=== PATIENT | male | born 1990 ===

== ENCOUNTER 2016-11-14 15:30 | Emergency (ER) | payer SELFPAY ==
[2016-11-14 15:46] VITALS: BP 106/69; PULSE 58; RESP 18; TEMP 98.2; O2SAT 100
--- NOTE | 2016-11-14 15:55 | C.PDOC ---
History Of Present Illness 26 year old male presents to the ED seeking detox from cocaine. Patient notes last use was today and he uses two bags daily. He denies physical complaints, suicidal, or homicidal ideations. No h/o seizures. Time Seen by Provider: 11/14/16 15:50 Chief Complaint (Nursing): Substance Abuse History Per: Patient History/Exam Limitations: no limitations Suicide/Self Injury Attempted (Context): None Modifying Factor(s): Cocaine Severity: None Pain Scale Rating Of: 0 Associated Symptoms: denies: Suicidal Thoughts, Suicidal Plan Involuntary Hold By: None Recent travel outside of the [place]: No Past Medical History Reviewed: Historical Data, Nursing Documentation, Vital Signs Vital Signs: Last Vital Signs Temp 98.2 F 11/14/16 15:43 Pulse 58 L 11/14/16 15:43 Resp 18 11/14/16 15:43 BP 106/69 11/14/16 15:43 Pulse Ox 100 11/14/16 16:10 Family History: States: Unknown Family Hx - Social History Hx Alcohol Use: No Hx Substance Use: Yes - Immunization History Hx Tetanus Toxoid Vaccination: No Hx Influenza Vaccination: No Hx Pneumococcal Vaccination: No Review Of Systems Except As Marked, All Systems Reviewed And Found Negative. Constitutional: Negative for: Fever Cardiovascular: Negative for: Chest Pain Respiratory: Negative for: Shortness of Breath Physical Exam - Physical Exam Appears: Non-toxic, No Acute Distress Skin: Warm, Dry Head: Atraumatic Eye(s): bilateral: Normal Inspection, EOMI Nose: Normal Oral Mucosa: Moist Neck: Supple Chest: Symmetrical, No Deformity Cardiovascular: Rhythm Regular Respiratory: Normal Breath Sounds, No Rales, No Rhonchi, No Wheezing Gastrointestinal/Abdominal: Soft, No Tenderness, No Distention, No Guarding, No Rebound Neurological/Psych: Oriented x3, Normal Speech, Normal Cognition ED Course And Treatment O2 Sat by Pulse Oximetry: 100 (room air ) Progress Note: Discussed with patient that there are no beds available for detox and to keep trying the mornings to call to see if beds are available. Disposition - Disposition Disposition: HOME/ ROUTINE Disposition Time: 15:51 Condition: STABLE Additional Instructions: [facility] [phone] for bed availability. Instructions: Opioid Dependence (ED) Forms: [employer] ([place]) - Clinical Impression Clinical Impression: Drug dependence - Scribe Statement The provider has reviewed the documentation as recorded by the Scribe Erum Yamhill All medical record entries made by the Monica were at my direction and personally dictated by me. I have reviewed the chart and agree that the record accurately reflects my personal performance of the history, physical exam, medical decision making, and the department course for this patient. I have also personally directed, reviewed, and agree with the discharge instructions and disposition.
== END 2016-11-14 16:06 | disposition home or self-care (01) ==
LOC: C.ER 15:30
DX: F14.20 Cocaine dependence, uncomplicated (principal)

== ENCOUNTER 2018-05-11 10:54 | Emergency (ER) | payer MEDICAID ==
[2018-05-11 10:59] VITALS: BMI 18.5
--- NOTE | 2018-05-11 12:01 | C.PDOC ---
History Of Present Illness 27 y/o male pt presents to the ER c/o malaise for x3 days. Associated sx includes vomiting and nausea. Pt reports he has been using 4-5 grams of heroin daily but has not used it for x3 days. Pt is requesting a detox. Pt denies dizziness, light headedness, fever, chills, SI/HI and abdominal pain. Time Seen by Provider: 05/11/18 11:15 Chief Complaint (Nursing): Substance Abuse History Per: Patient History/Exam Limitations: no limitations Onset/Duration Of Symptoms: Days (x3) Current Symptoms Are (Timing): Still Present Modifying Factor(s): Other (heroin) Past Medical History Reviewed: Historical Data, Nursing Documentation, Vital Signs Vital Signs: Last Vital Signs Temp 98.6 F 05/11/18 10:56 Pulse 69 05/11/18 10:56 Resp 18 05/11/18 10:56 BP 142/80 05/11/18 10:56 Pulse Ox 100 05/11/18 10:56 Family History: States: Unknown Family Hx - Social History Hx Alcohol Use: No Hx Substance Use: Yes (heroin, crack) - Immunization History Hx Tetanus Toxoid Vaccination: No Hx Influenza Vaccination: No Hx Pneumococcal Vaccination: No Review Of Systems Constitutional: Negative for: Fever, Chills Cardiovascular: Negative for: Light Headedness Gastrointestinal: Positive for: Nausea, Vomiting. Negative for: Abdominal Pain Psych: Negative for: Suicidal ideation, Other (HI) Physical Exam - Physical Exam Appears: Non-toxic, Other (uncomfortable) Skin: Warm, Dry Head: Normacephalic Eye(s): bilateral: Other (teary-eyed ) Throat: Normal Neck: Normal ROM, Supple Chest: Symmetrical, No Deformity Cardiovascular: Rhythm Regular, No Murmur Respiratory: Normal Breath Sounds, No Rales, No Rhonchi, No Wheezing Gastrointestinal/Abdominal: Soft, No Tenderness Neurological/Psych: Oriented x3, Normal Speech ED Course And Treatment - Laboratory Results Result Diagrams: 05/11/18 13:50 O2 Sat by Pulse Oximetry: 100 (RA) Pulse Ox Interpretation: Normal Medical Decision Making Medical Decision Making: Plans: -- Toradol -- Zofran no detox beds available, given list of detox programs and substance abuse hotline phone number. pt given ivf and posassium replacement, feeling better. tolerates po fluids. will d/c with zofran and pt recommended to go to detox. Disposition Counseled Patient/Family Regarding: Studies Performed, Diagnosis, Need For Followup, Rx Given - Disposition Referrals: [facility] [Outside] [facility] [Outside] Disposition: HOME/ ROUTINE Disposition Time: 15:48 Condition: IMPROVED Additional Instructions: Recommend that you go to a detox program. Take ondansetron for nausea. Eat foods with potassium like oranges and bananas. Follow up in medical clinic in a few days/. . 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 - Scribe Statement The provider has reviewed the documentation as recorded by the Monica Fox Do All medical record entries made by the Scribe were at my direction and personally dictated by me. I have reviewed the chart and agree that the record a ccurately reflects my personal performance of the history, physical exam, medical decision making, and the department course for this patient. I have also personally directed, reviewed, and agree with the discharge instructions and disposition.
[2018-05-11] MEDS ORDERED: Sodium Chloride 0.9% 1,000 ML IV ONE ×2 (13:04→14:18)
[2018-05-11 13:38] LABS: SQUAMOUS EPITHIAL < 1 /hpf (0-5); URINE BILIRUBIN NEGATIVE (NEGATIVE); URINE BLOOD NEGATIVE (NEGATIVE); URINE CLARITY Hazy (Clear); URINE COLOR Yellow (YELLOW); URINE GLUCOSE (UA) NORMAL (Normal); URINE LEUKOCYTE ESTERASE NEG Leu/uL (Negative); URINE PROTEIN 1+ mg/dL (NEGATIVE)
[2018-05-11 14:11] LABS: ALB/GLOB RATIO 1.5 (1.0-2.1); ALBUMIN 4.9 g/dL (3.5-5.0); ALT/SGPT 50 U/L (21-72); AST/SGOT 52 U/L (17-59); BLOOD UREA NITROGEN 14 mg/dL (9-20); CALCIUM 9.4 mg/dl (8.6-10.4); GFR NON-AFRICAN AMERICAN > 60
[2018-05-11] MEDS ORDERED: Potassium Chloride 20 mEq ER Tab PO STA (14:17)
[2018-05-11] MEDS ORDERED: Potassium Chloride 20 mEq ER Tab PO ONE (14:52)
[2018-05-11 15:10] VITALS: BP 108/49; PULSE 66; RESP 14; TEMP 98.8
[2018-05-11 15:50] VITALS: O2SAT 100
== END 2018-05-11 15:59 | disposition home or self-care (01) ==
LOC: C.ER 10:54
DX: F11.20 Opioid dependence, uncomplicated (principal); R11.2 Nausea with vomiting, unspecified
CPT/HCPCS: 80053; 81001; 96372; 99284; J1885; J7030

== ENCOUNTER 2018-07-11 15:01 | Emergency (ER) | payer MEDICAID ==
[2018-07-11 15:02] VITALS: BMI 18.5
[2018-07-11 15:15] VITALS: BP 107/61; PULSE 82; RESP 18; TEMP 98.2; O2SAT 100
--- NOTE | 2018-07-11 16:20 | C.PDOC ---
History Of Present Illness 28 year old male presents to ED for heroin abuse. Patient states that he "took too much heroin today" by snorting it. Patient states that he feels sleepy. He was brought in by police. Patient denies any other complaints and states that he just needs "to sober up from the heroin" before he leaves. Patient denies suicidal ideation and homicidal ideation. Time Seen by Provider: 07/11/18 15:03 Chief Complaint (Nursing): Substance Abuse History Per: Patient History/Exam Limitations: no limitations Onset/Duration Of Symptoms: Hrs Current Symptoms Are (Timing): Still Present Suicide/Self Injury Attempted (Context): None Modifying Factor(s): Other (heroin) Associated Symptoms: denies: Suicidal Thoughts, Suicidal Plan Involuntary Hold By: Local Law Enforcement Past Medical History Reviewed: Historical Data, Nursing Documentation, Vital Signs Vital Signs: Last Vital Signs Temp 98.2 F 07/11/18 15:08 Pulse 82 07/11/18 15:08 Resp 18 07/11/18 15:08 BP 107/61 07/11/18 15:08 Pulse Ox 100 07/11/18 15:08 - Medical History PMH: No Chronic Diseases Surgical History: No Surg Hx Family History: States: Unknown Family Hx - Social History Hx Alcohol Use: No Hx Substance Use: Yes (heroin, crack) - Immunization History Hx Tetanus Toxoid Vaccination: No Hx Influenza Vaccination: No Hx Pneumococcal Vaccination: No Review Of Systems Constitutional: Positive for: Other (sleepy). Negative for: Fever, Chills, Sweats, Weakness Gastrointestinal: Negative for: Nausea, Vomiting, Abdominal Pain, Diarrhea Skin: Negative for: Rash Neurological: Negative for: Weakness, Numbness, Dizziness Psych: Negative for: Suicidal ideation, Other (homicidal ideation) Physical Exam - Physical Exam Additional Physical Exam Comments: Constitutional: No acute distress. Drowsy. Spontaneously breathing. Head: Normocephalic. Atraumatic. Eyes: PERRL. ENT: Moist mucous membranes. Neck: Supple. Cardiovascular: Regular rate. Radial pulse 2+ bilaterally. Chest: No tenderness. Respiratory: Clear to auscultation bilaterally. GI: Soft. Nontender. Nondistended. Back: No CVA tenderness. Musculoskeletal: No tenderness or swelling of extremities. Skin: No rash. Neurologic: Alert, no focal deficit. ED Course And Treatment O2 Sat by Pulse Oximetry: 100 Medical Decision Making Medical Decision Making: Observe for sobriety. Disposition - Disposition Disposition: HOME/ ROUTINE Disposition Time: 16:15 Condition: GOOD Instructions: Narcotic Overdose Forms: [employer] (Mauritian) - Clinical Impression Clinical Impression: Heroin abuse - Scribe Statement The provider has reviewed the documentation as recorded by the Scribe (Sofie Martinez) All medical record entries made by the Scribe were at my direction and personally dictated by me. I have reviewed the chart and agree that the record accurately reflects my personal performance of the history, physical exam, medical decision making, and the department course for this patient. I have also personally directed, reviewed, and agree with the discharge instructions and disposition.
== END 2018-07-11 18:30 | disposition home or self-care (01) ==
LOC: C.ER 15:01
DX: F11.10 Opioid abuse, uncomplicated (principal)